=== PATIENT | female | born 1975 | race Two or more races ===

== ENCOUNTER 2024-12-23 11:16 | Emergency (ER) | payer MEDICAID ==
[~2024-12-23] VITALS: Ht 165.1 cm; Wt 95.0 kg
[2024-12-23 11:28] VITALS: BP 111/68; PULSE 90; RESP 18; TEMP 36.8; O2SAT 99
== END 2024-12-23 11:32 | disposition left against medical advice (07) ==
LOC: ER 11:16
DX: M54.50 Low back pain, unspecified (principal); F31.9 Bipolar disorder, unspecified; F20.9 Schizophrenia, unspecified; Z53.21 Procedure and treatment not carried out due to patient leaving prior to being seen by health care provider
CPT/HCPCS: 99281